=== PATIENT | female | born 1985 | race Two or more races ===

== ENCOUNTER 2019-01-21 12:25 | Outpatient (CLI) | payer OTHER | END 2019-01-22 16:02 | disposition home or self-care (01) | LOC: OBS/DEL 12:25 | DX: O26.843 Uterine size-date discrepancy, third trimester (principal); O26.893 Other specified pregnancy related conditions, third trimester; O36.8130 Decreased fetal movements, third trimester, not applicable or unspecified; O32.1XX0 Maternal care for breech presentation, not applicable or unspecified ==

== ENCOUNTER 2019-02-11 13:57 | Inpatient (IN) | payer OTHER ==
[~2019-02-11] VITALS: Ht 160 cm; Wt 95.3 kg
[2019-02-27] MEDS ORDERED: RHOGAM ULTR1500 UNIT IM (13:50)
== END 2019-02-28 17:06 | DRG 807 ==
LOC: O/R 14:00 → LDR 02-26 05:26 → OB/GYN 02-26 05:26 → LDR 03-05 14:00
PROVIDERS: ADMIT Specialist
PROC: 10E0XZZ Delivery of Products of Conception, External Approach (ICD-10-PCS; principal; 2019-02-26)
PROC: 0HQ9XZZ Repair Perineum Skin, External Approach (ICD-10-PCS; 2019-02-26)
PROC: 4A1HXCZ Monitoring of Products of Conception, Cardiac Rate, External Approach (ICD-10-PCS; 2019-02-26)
DX: O70.0 First degree perineal laceration during delivery (principal); Z37.0 Single live birth; Z3A.39 39 weeks gestation of pregnancy